=== PATIENT | female | born 1980 | race Caucasian/White ===

== ENCOUNTER 2017-11-18 15:54 | Emergency (ER) | payer MEDICAID | END 2017-11-18 16:15 | disposition home or self-care (01) | LOC: E/R 15:54 | DX: R05 Cough (principal) | CPT/HCPCS: 99284; Z7502 ==

== ENCOUNTER 2018-07-21 18:15 | Emergency (ER) | payer MEDICAID | END 2018-07-21 21:11 | disposition home or self-care (01) | LOC: FTE 18:15 | DX: B35.4 Tinea corporis (principal) | CPT/HCPCS: 99283; Z7502 ==